=== PATIENT | male | born 1950 | race Caucasian/White ===

== ENCOUNTER 2019-11-04 13:41 | Inpatient (IN) ==
[2019-11-08] MEDS: carvediloL 6.25 MG TABLET PO SCH (20:59)
[2019-11-08] MEDS: traZODone 50 MG TABLET PO PRN (20:59)
[2019-11-09 05:20] LABS: Basophils # 0.1 K/mcL (0.0-0.2); Basophils % 0.8 %; Eosinophils # 0.2 K/mcL (0.0-0.6); Eosinophils % 2.4 %; Hematocrit 36.1 % (37.5-50.1); Hemoglobin 12.4 g/dL (12.9-16.9); Immature Granulocytes % 0.8 % (0-4); Lymphocytes # 1.5 K/mcL (0.6-4.6); Lymphocytes % 17.9 %; Mean Corpuscular HGB Conc 34.3 g/dL (31.6-35.5); Mean Corpuscular Hemoglobin 31.3 pg (28.0-33.3); Mean Corpuscular Volume 91.2 fL (83.0-100.0); Mean Platelet Volume 8.9 fL (9.4-12.4); Monocytes % 11.3 %; Neutrophils # 5.6 K/mcL (1.6-8.9); Platelet Count 236 K/mcL (140-400); Red Blood Count 3.96 M/mcL (4.19-5.50); Red Cell Distribution Width 14.8 % (11.5-14.5); Segmented Neutrophils % 66.8 %; White Blood Count 8.4 K/mcL (4.3-11.1)
[2019-11-09 05:34] LABS: BUN/Creatinine Ratio 19 (6-26); Blood Urea Nitrogen 17 mg/dL (8-23); Calcium 8.9 mg/dL (8.6-10.3); Carbon Dioxide 25 mEq/L (23-29); Chloride 103 mEq/L (98-107); Glucose 106 mg/dL (70-105); Osmolality,Calculated 282 (280-300); Potassium 4.1 mEq/L (3.5-5.1); Sodium 135 mEq/L (136-145); eGFR For African Americans > 60 (> 60); eGFR For Non-African Americans > 60 (> 60)
[2019-11-09] MEDS: amLODIPine 5 MG TABLET PO SCH (07:49)
[2019-11-09] MEDS: lisinopriL 20 MG TABLET PO SCH (07:49)
[2019-11-09] MEDS: Furosemide 20 MG TABLET PO SCH (07:49)
[2019-11-09] MEDS: Aspirin 81 MG TAB.CHEW PO SCH (07:49)
[2019-11-09] MEDS: carvediloL 6.25 MG TABLET PO SCH ×2 (07:49→20:42)
[2019-11-09] MEDS: Acetaminophen 325 MG TABLET PO PRN (16:24)
[2019-11-09] MEDS: traZODone 50 MG TABLET PO PRN (21:38)
[2019-11-10] MEDS: carvediloL 6.25 MG TABLET PO SCH ×2 (08:55→20:18)
[2019-11-10] MEDS: Aspirin 81 MG TAB.CHEW PO SCH (08:55)
[2019-11-10] MEDS: Furosemide 20 MG TABLET PO SCH (08:55)
[2019-11-10] MEDS: lisinopriL 20 MG TABLET PO SCH (08:55)
[2019-11-10] MEDS: amLODIPine 5 MG TABLET PO SCH (08:55)
[2019-11-10] MEDS: Acetaminophen 325 MG TABLET PO PRN (09:33)
[2019-11-10] MEDS: *HR* HYDROcodone/Acet 5/325 mg TABLET PO PRN ×2 (11:36→20:17)
[2019-11-10 14:42] LABS: Bilirubin,Urine Negative (Negative); Blood,Urine Trace-intact (Negative); Clarity,Urine Clear (Clear); Color,Urine Yellow (Yellow); Glucose,Urine (UA) Normal (Normal); Ketones,Urine Negative (Negative); Leukocyte Esterase,Urine Negative (Negative); Nitrite,Urine Negative (Negative); Protein,Urine Negative (Neg-Trace); Urobilinogen,Urine Normal (Normal)
[2019-11-10 14:47] LABS: RBC,Urine 0-3 per hpf (0-3); WBC,Urine 0-3 per hpf (0-3)
[2019-11-10] MEDS: traZODone 50 MG TABLET PO PRN (20:17)
[2019-11-11 06:09] LABS: Basophils # 0.1 K/mcL (0.0-0.2); Basophils % 1.1 %; Eosinophils # 0.3 K/mcL (0.0-0.6); Eosinophils % 3.3 %; Hematocrit 35.4 % (37.5-50.1); Hemoglobin 12.2 g/dL (12.9-16.9); Immature Granulocytes % 0.7 % (0-4); Lymphocytes # 1.7 K/mcL (0.6-4.6); Lymphocytes % 22.9 %; Mean Corpuscular HGB Conc 34.5 g/dL (31.6-35.5); Mean Corpuscular Hemoglobin 31.6 pg (28.0-33.3); Mean Corpuscular Volume 91.7 fL (83.0-100.0); Mean Platelet Volume 9.1 fL (9.4-12.4); Monocytes # 0.8 K/mcL (0.0-1.3); Monocytes % 11.2 %; Neutrophils # 4.6 K/mcL (1.6-8.9); Platelet Count 236 K/mcL (140-400); Red Blood Count 3.86 M/mcL (4.19-5.50); Red Cell Distribution Width 14.8 % (11.5-14.5); Segmented Neutrophils % 60.8 %; White Blood Count 7.5 K/mcL (4.3-11.1)
[2019-11-11 06:29] LABS: Alanine Aminotransferase 30 Units/L (7-52); Albumin 3.7 g/dL (3.5-5.7); Albumin/Globulin Ratio 1.6 (1.1-2.2); Alkaline Phosphatase 53 Units/L (34-104); Aspartate Amino Transferase 21 Units/L (13-39); BUN/Creatinine Ratio 25 (6-26); Bilirubin,Total 1.2 mg/dL (0.3-1.0); Blood Urea Nitrogen 20 mg/dL (8-23); Carbon Dioxide 28 mEq/L (23-29); Chloride 103 mEq/L (98-107); Globulin 2.3 g/dL (2.4-3.5); Glucose 110 mg/dL (70-105); Magnesium 2.3 mg/dL (1.6-2.6); Osmolality,Calculated 285 (280-300); Potassium 4.3 mEq/L (3.5-5.1); Sodium 136 mEq/L (136-145); eGFR For African Americans > 60 (> 60); eGFR For Non-African Americans > 60 (> 60)
[2019-11-11] MEDS: Aspirin 81 MG TAB.CHEW PO SCH (08:21)
[2019-11-11] MEDS: lisinopriL 20 MG TABLET PO SCH (08:21)
[2019-11-11] MEDS: carvediloL 6.25 MG TABLET PO SCH ×2 (08:21→21:33)
[2019-11-11] MEDS: Acetaminophen 325 MG TABLET PO PRN ×2 (08:21→21:35)
[2019-11-11] MEDS: Furosemide 20 MG TABLET PO SCH (08:22)
[2019-11-11] MEDS: amLODIPine 5 MG TABLET PO SCH (08:22)
[2019-11-11] MEDS: *HR* HYDROcodone/Acet 5/325 mg TABLET PO PRN (14:46)
[2019-11-11] MEDS: traZODone 50 MG TABLET PO PRN (21:34)
[2019-11-12] MEDS: *HR* HYDROcodone/Acet 5/325 mg TABLET PO PRN (06:59)
[2019-11-12] MEDS: Aspirin 81 MG TAB.CHEW PO SCH (09:15)
[2019-11-12] MEDS: carvediloL 6.25 MG TABLET PO SCH ×2 (09:15→20:37)
[2019-11-12] MEDS: Furosemide 20 MG TABLET PO SCH (09:15)
[2019-11-12] MEDS: lisinopriL 20 MG TABLET PO SCH (09:15)
[2019-11-12] MEDS: amLODIPine 5 MG TABLET PO SCH (09:16)
[2019-11-12] MEDS: Ibuprofen 400 MG TABLET PO PRN (20:38)
[2019-11-12] MEDS: traZODone 50 MG TABLET PO PRN (20:38)
[2019-11-13] MEDS: *HR* HYDROcodone/Acet 5/325 mg TABLET PO PRN ×2 (05:31→18:10)
[2019-11-13] MEDS: Aspirin 81 MG TAB.CHEW PO SCH (09:00)
[2019-11-13] MEDS: Furosemide 20 MG TABLET PO SCH (09:00)
[2019-11-13] MEDS: carvediloL 6.25 MG TABLET PO SCH ×2 (09:00→20:47)
[2019-11-13] MEDS: amLODIPine 5 MG TABLET PO SCH (09:00)
[2019-11-13] MEDS: lisinopriL 20 MG TABLET PO SCH (09:00)
[2019-11-13] MEDS: Ibuprofen 400 MG TABLET PO PRN (20:43)
[2019-11-13] MEDS: traZODone 50 MG TABLET PO PRN (20:44)
[2019-11-14] MEDS: *HR* HYDROcodone/Acet 5/325 mg TABLET PO PRN ×2 (01:46→20:53)
[2019-11-14] MEDS: Acetaminophen 325 MG TABLET PO PRN ×2 (06:25→12:23)
[2019-11-14] MEDS: carvediloL 6.25 MG TABLET PO SCH ×2 (08:44→20:51)
[2019-11-14] MEDS: amLODIPine 5 MG TABLET PO SCH (08:44)
[2019-11-14] MEDS: lisinopriL 20 MG TABLET PO SCH (08:44)
[2019-11-14] MEDS: Furosemide 20 MG TABLET PO SCH (08:44)
[2019-11-14] MEDS: Aspirin 81 MG TAB.CHEW PO SCH (08:44)
[2019-11-14] MEDS: traZODone 50 MG TABLET PO PRN (20:52)
[2019-11-15] MEDS: lisinopriL 20 MG TABLET PO SCH (08:22)
[2019-11-15] MEDS: Aspirin 81 MG TAB.CHEW PO SCH (08:22)
[2019-11-15] MEDS: carvediloL 6.25 MG TABLET PO SCH ×2 (08:22→20:33)
[2019-11-15] MEDS: Furosemide 20 MG TABLET PO SCH (08:22)
[2019-11-15] MEDS: amLODIPine 5 MG TABLET PO SCH (08:22)
[2019-11-15] MEDS: *HR* HYDROcodone/Acet 5/325 mg TABLET PO PRN ×2 (10:30→20:34)
[2019-11-15] MEDS: traZODone 50 MG TABLET PO PRN (20:34)
[2019-11-16] MEDS: carvediloL 6.25 MG TABLET PO SCH ×2 (08:34→20:33)
[2019-11-16] MEDS: lisinopriL 20 MG TABLET PO SCH (08:35)
[2019-11-16] MEDS: Furosemide 20 MG TABLET PO SCH (08:35)
[2019-11-16] MEDS: Aspirin 81 MG TAB.CHEW PO SCH (08:35)
[2019-11-16] MEDS: amLODIPine 5 MG TABLET PO SCH (08:35)
[2019-11-16] MEDS: Acetaminophen 325 MG TABLET PO PRN (09:22)
[2019-11-16] MEDS: traZODone 50 MG TABLET PO PRN (20:32)
[2019-11-16] MEDS: Sennosides/Docusate Sodium TABLET PO SCH (20:33)
[2019-11-16] MEDS: *HR* HYDROcodone/Acet 5/325 mg TABLET PO PRN (20:34)
[2019-11-17 05:16] LABS: Hematocrit 37.7 % (37.5-50.1); Hemoglobin 12.9 g/dL (12.9-16.9); Mean Corpuscular HGB Conc 34.2 g/dL (31.6-35.5); Mean Corpuscular Hemoglobin 31.1 pg (28.0-33.3); Mean Corpuscular Volume 90.8 fL (83.0-100.0); Mean Platelet Volume 8.9 fL (9.4-12.4); Platelet Count 232 K/mcL (140-400); Red Blood Count 4.15 M/mcL (4.19-5.50); Red Cell Distribution Width 14.6 % (11.5-14.5); White Blood Count 6.5 K/mcL (4.3-11.1)
[2019-11-17 05:35] LABS: Alanine Aminotransferase 25 Units/L (7-52); Albumin 3.8 g/dL (3.5-5.7); Albumin/Globulin Ratio 1.5 (1.1-2.2); Alkaline Phosphatase 52 Units/L (34-104); Aspartate Amino Transferase 18 Units/L (13-39); BUN/Creatinine Ratio 17 (6-26); Bilirubin,Total 0.8 mg/dL (0.3-1.0); Blood Urea Nitrogen 13 mg/dL (8-23); Calcium 9.2 mg/dL (8.6-10.3); Carbon Dioxide 26 mEq/L (23-29); Chloride 102 mEq/L (98-107); Globulin 2.6 g/dL (2.4-3.5); Glucose 118 mg/dL (70-105); Magnesium 2.2 mg/dL (1.6-2.6); Osmolality,Calculated 279 (280-300); Potassium 4.2 mEq/L (3.5-5.1); Sodium 134 mEq/L (136-145); Total Protein 6.4 g/dL (6.4-8.9); eGFR For African Americans > 60 (> 60); eGFR For Non-African Americans > 60 (> 60)
[2019-11-17] MEDS: carvediloL 6.25 MG TABLET PO SCH ×2 (08:32→20:19)
[2019-11-17] MEDS: Aspirin 81 MG TAB.CHEW PO SCH (08:32)
[2019-11-17] MEDS: lisinopriL 20 MG TABLET PO SCH (08:32)
[2019-11-17] MEDS: amLODIPine 5 MG TABLET PO SCH (08:32)
[2019-11-17] MEDS: Furosemide 20 MG TABLET PO SCH (08:32)
[2019-11-17] MEDS: Sennosides/Docusate Sodium TABLET PO SCH ×2 (08:32→20:16)
[2019-11-17] MEDS: *HR* HYDROcodone/Acet 5/325 mg TABLET PO PRN ×2 (14:24→20:21)
[2019-11-17] MEDS: Melatonin 3 MG TABLET PO SCH (20:17)
[2019-11-17] MEDS: traZODone 50 MG TABLET PO SCH (20:18)
[2019-11-18] MEDS: *HR* HYDROcodone/Acet 5/325 mg TABLET PO PRN ×2 (06:48→20:19)
[2019-11-18] MEDS: Furosemide 20 MG TABLET PO SCH (08:20)
[2019-11-18] MEDS: lisinopriL 20 MG TABLET PO SCH (08:20)
[2019-11-18] MEDS: Aspirin 81 MG TAB.CHEW PO SCH (08:21)
[2019-11-18] MEDS: Sennosides/Docusate Sodium TABLET PO SCH ×2 (08:21→20:20)
[2019-11-18] MEDS: amLODIPine 5 MG TABLET PO SCH (08:21)
[2019-11-18] MEDS: carvediloL 6.25 MG TABLET PO SCH ×2 (08:21→20:22)
[2019-11-18] MEDS: Ibuprofen 400 MG TABLET PO PRN (09:21)
[2019-11-18] MEDS ORDERED: Bisacodyl 10 MG RECTAL SUPPOSITORY RC PRN (11:24)
[2019-11-18] MEDS: traZODone 50 MG TABLET PO SCH (20:20)
[2019-11-18] MEDS: Melatonin 3 MG TABLET PO SCH (20:21)
[2019-11-19] MEDS: *HR* HYDROcodone/Acet 5/325 mg TABLET PO PRN ×2 (04:18→21:02)
[2019-11-19] MEDS: Aspirin 81 MG TAB.CHEW PO SCH (08:25)
[2019-11-19] MEDS: Sennosides/Docusate Sodium TABLET PO SCH ×2 (08:26→21:04)
[2019-11-19] MEDS: lisinopriL 20 MG TABLET PO SCH (08:26)
[2019-11-19] MEDS: amLODIPine 5 MG TABLET PO SCH (08:26)
[2019-11-19] MEDS: Furosemide 20 MG TABLET PO SCH (08:26)
[2019-11-19] MEDS: carvediloL 6.25 MG TABLET PO SCH ×2 (08:26→21:03)
[2019-11-19] MEDS: Melatonin 3 MG TABLET PO SCH (21:04)
[2019-11-20] MEDS: *HR* HYDROcodone/Acet 5/325 mg TABLET PO PRN ×3 (03:03→18:25)
[2019-11-20] MEDS: amLODIPine 5 MG TABLET PO SCH (09:14)
[2019-11-20] MEDS: Aspirin 81 MG TAB.CHEW PO SCH (09:14)
[2019-11-20] MEDS: carvediloL 6.25 MG TABLET PO SCH ×2 (09:14→20:02)
[2019-11-20] MEDS: lisinopriL 20 MG TABLET PO SCH (09:15)
[2019-11-20] MEDS: Sennosides/Docusate Sodium TABLET PO SCH ×2 (09:15→20:01)
[2019-11-20] MEDS: Furosemide 20 MG TABLET PO SCH (09:15)
[2019-11-20] MEDS: Melatonin 3 MG TABLET PO SCH (20:02)
[2019-11-20] MEDS: Ibuprofen 400 MG TABLET PO PRN (22:31)
[2019-11-21] MEDS: *HR* HYDROcodone/Acet 5/325 mg TABLET PO PRN ×2 (02:36→22:28)
[2019-11-21] MEDS: Aspirin 81 MG TAB.CHEW PO SCH (08:12)
[2019-11-21] MEDS: carvediloL 6.25 MG TABLET PO SCH ×2 (08:12→21:02)
[2019-11-21] MEDS: amLODIPine 5 MG TABLET PO SCH (08:12)
[2019-11-21] MEDS: lisinopriL 20 MG TABLET PO SCH (08:13)
[2019-11-21] MEDS: Furosemide 20 MG TABLET PO SCH (08:13)
[2019-11-21] MEDS: Sennosides/Docusate Sodium TABLET PO SCH ×2 (08:13→21:03)
[2019-11-21] MEDS: Gabapentin 100 MG CAPSULE PO SCH ×2 (14:30→21:03)
[2019-11-21] MEDS: Melatonin 3 MG TABLET PO SCH (21:02)
[2019-11-22] MEDS: amLODIPine 5 MG TABLET PO SCH (09:40)
[2019-11-22] MEDS: Sennosides/Docusate Sodium TABLET PO SCH ×3 (09:41→20:10)
[2019-11-22] MEDS: carvediloL 6.25 MG TABLET PO SCH ×2 (09:41→20:09)
[2019-11-22] MEDS: lisinopriL 20 MG TABLET PO SCH ×2 (09:41→17:15)
[2019-11-22] MEDS: Aspirin 81 MG TAB.CHEW PO SCH ×2 (09:41→17:14)
[2019-11-22] MEDS: Gabapentin 100 MG CAPSULE PO SCH ×4 (09:41→20:09)
[2019-11-22] MEDS: Furosemide 20 MG TABLET PO SCH ×2 (09:41→17:15)
[2019-11-22] MEDS ORDERED: Albuterol 2.5 MG/3 ML NEBULIZER IH PRN (17:44)
[2019-11-22] MEDS: Melatonin 3 MG TABLET PO SCH (20:09)
[2019-11-22] MEDS: Doxycycline 100 MG CAPSULE PO SCH (20:09)
[2019-11-22] MEDS: Acetaminophen 325 MG TABLET PO PRN (20:10)
[2019-11-22 21:08] LABS: Basophils # 0.1 K/mcL (0.0-0.2); Basophils % 1.2 %; Eosinophils # 0.2 K/mcL (0.0-0.6); Eosinophils % 2.2 %; Hemoglobin 12.5 g/dL (12.9-16.9); Immature Granulocytes % 0.4 % (0-4); Lymphocytes # 1.9 K/mcL (0.6-4.6); Mean Corpuscular HGB Conc 35.7 g/dL (31.6-35.5); Mean Corpuscular Hemoglobin 31.8 pg (28.0-33.3); Mean Corpuscular Volume 89.1 fL (83.0-100.0); Mean Platelet Volume 8.9 fL (9.4-12.4); Monocytes # 1.3 K/mcL (0.0-1.3); Monocytes % 15.2 %; Neutrophils # 5.1 K/mcL (1.6-8.9); Platelet Count 181 K/mcL (140-400); Red Blood Count 3.93 M/mcL (4.19-5.50); Red Cell Distribution Width 14.2 % (11.5-14.5); White Blood Count 8.6 K/mcL (4.3-11.1)
[2019-11-22 21:24] LABS: BUN/Creatinine Ratio 27 (6-26); Blood Urea Nitrogen 22 mg/dL (8-23); Calcium 8.7 mg/dL (8.6-10.3); Carbon Dioxide 23 mEq/L (23-29); Chloride 94 mEq/L (98-107); Glucose 103 mg/dL (70-105); Osmolality,Calculated 262 (280-300); Potassium 4.1 mEq/L (3.5-5.1); Sodium 124 mEq/L (136-145); eGFR For African Americans > 60 (> 60); eGFR For Non-African Americans > 60 (> 60)
[2019-11-23] MEDS: amLODIPine 5 MG TABLET PO SCH (04:29)
[2019-11-23] MEDS: carvediloL 6.25 MG TABLET PO SCH ×2 (04:29→20:18)
[2019-11-23] MEDS: Doxycycline 100 MG CAPSULE PO SCH ×2 (04:39→20:16)
[2019-11-23] MEDS: Gabapentin 100 MG CAPSULE PO SCH ×2 (15:55→20:14)
[2019-11-23] MEDS: Furosemide 20 MG TABLET PO SCH (16:56)
[2019-11-23] MEDS: Aspirin 81 MG TAB.CHEW PO SCH (16:56)
[2019-11-23] MEDS: Sennosides/Docusate Sodium TABLET PO SCH (17:55)
[2019-11-23 18:24] LABS: BUN/Creatinine Ratio 20 (6-26); Blood Urea Nitrogen 19 mg/dL (8-23); Calcium 9.4 mg/dL (8.6-10.3); Carbon Dioxide 24 mEq/L (23-29); Chloride 98 mEq/L (98-107); Glucose 107 mg/dL (70-105); Osmolality,Calculated 273 (280-300); Potassium 4.1 mEq/L (3.5-5.1); Sodium 130 mEq/L (136-145); eGFR For African Americans > 60 (> 60); eGFR For Non-African Americans > 60 (> 60)
[2019-11-23] MEDS: Ibuprofen 400 MG TABLET PO PRN (20:15)
[2019-11-23] MEDS: Melatonin 3 MG TABLET PO SCH (20:17)
[2019-11-24] MEDS: *HR* HYDROcodone/Acet 5/325 mg TABLET PO PRN (04:36)
[2019-11-24 06:02] LABS: BUN/Creatinine Ratio 23 (6-26); Blood Urea Nitrogen 18 mg/dL (8-23); Calcium 9.1 mg/dL (8.6-10.3); Carbon Dioxide 25 mEq/L (23-29); Chloride 97 mEq/L (98-107); Glucose 111 mg/dL (70-105); Osmolality,Calculated 271 (280-300); Potassium 4.4 mEq/L (3.5-5.1); Sodium 129 mEq/L (136-145); eGFR For African Americans > 60 (> 60); eGFR For Non-African Americans > 60 (> 60)
[2019-11-24] MEDS: Doxycycline 100 MG CAPSULE PO SCH ×2 (08:46→20:45)
[2019-11-24] MEDS: Aspirin 81 MG TAB.CHEW PO SCH (08:46)
[2019-11-24] MEDS: Furosemide 20 MG TABLET PO SCH (08:46)
[2019-11-24] MEDS: carvediloL 6.25 MG TABLET PO SCH ×2 (08:46→20:50)
[2019-11-24] MEDS: lisinopriL 20 MG TABLET PO SCH (08:46)
[2019-11-24] MEDS: Gabapentin 100 MG CAPSULE PO SCH ×3 (08:46→20:45)
[2019-11-24] MEDS: amLODIPine 5 MG TABLET PO SCH (08:46)
[2019-11-24] MEDS: Acetaminophen 325 MG TABLET PO PRN (08:47)
[2019-11-24] MEDS: Sennosides/Docusate Sodium TABLET PO SCH ×2 (08:50→20:47)
[2019-11-24] MEDS: Melatonin 3 MG TABLET PO SCH (20:46)
[2019-11-24] MEDS: Ibuprofen 400 MG TABLET PO PRN (20:48)
[2019-11-25] MEDS: Ibuprofen 400 MG TABLET PO PRN (04:42)
[2019-11-25] MEDS: Aspirin 81 MG TAB.CHEW PO SCH (08:03)
[2019-11-25] MEDS: lisinopriL 20 MG TABLET PO SCH (08:03)
[2019-11-25] MEDS: Doxycycline 100 MG CAPSULE PO SCH ×2 (08:03→20:35)
[2019-11-25] MEDS: Gabapentin 100 MG CAPSULE PO SCH ×3 (08:03→20:36)
[2019-11-25] MEDS: amLODIPine 5 MG TABLET PO SCH (08:03)
[2019-11-25] MEDS: Sennosides/Docusate Sodium TABLET PO SCH ×2 (08:03→20:36)
[2019-11-25] MEDS: carvediloL 6.25 MG TABLET PO SCH ×2 (08:03→20:35)
[2019-11-25] MEDS: Furosemide 20 MG TABLET PO SCH (08:03)
[2019-11-25] MEDS: Melatonin 3 MG TABLET PO SCH (20:36)
[2019-11-26] MEDS: Doxycycline 100 MG CAPSULE PO SCH ×2 (08:49→20:14)
[2019-11-26] MEDS: lisinopriL 20 MG TABLET PO SCH (08:49)
[2019-11-26] MEDS: Aspirin 81 MG TAB.CHEW PO SCH (08:49)
[2019-11-26] MEDS: Furosemide 20 MG TABLET PO SCH (08:49)
[2019-11-26] MEDS: carvediloL 6.25 MG TABLET PO SCH ×2 (08:49→20:15)
[2019-11-26] MEDS: amLODIPine 5 MG TABLET PO SCH (08:49)
[2019-11-26] MEDS: Sennosides/Docusate Sodium TABLET PO SCH ×2 (08:49→20:14)
[2019-11-26] MEDS: Gabapentin 100 MG CAPSULE PO SCH ×3 (08:49→20:14)
[2019-11-26] MEDS: Acetaminophen 325 MG TABLET PO PRN (15:35)
[2019-11-26] MEDS: Ibuprofen 400 MG TABLET PO PRN (20:14)
[2019-11-26] MEDS: Melatonin 3 MG TABLET PO SCH (20:15)
[2019-11-27] MEDS: Acetaminophen 325 MG TABLET PO PRN ×2 (06:28→15:15)
[2019-11-27] MEDS: amLODIPine 5 MG TABLET PO SCH (09:06)
[2019-11-27] MEDS: Aspirin 81 MG TAB.CHEW PO SCH (09:06)
[2019-11-27] MEDS: carvediloL 6.25 MG TABLET PO SCH ×2 (09:06→20:52)
[2019-11-27] MEDS: Sennosides/Docusate Sodium TABLET PO SCH ×2 (09:07→20:53)
[2019-11-27] MEDS: lisinopriL 20 MG TABLET PO SCH (09:07)
[2019-11-27] MEDS: Doxycycline 100 MG CAPSULE PO SCH ×2 (09:07→20:53)
[2019-11-27] MEDS: Gabapentin 100 MG CAPSULE PO SCH ×3 (09:07→20:53)
[2019-11-27] MEDS: Furosemide 20 MG TABLET PO SCH (09:07)
[2019-11-27] MEDS: Ibuprofen 400 MG TABLET PO PRN ×2 (09:07→20:54)
[2019-11-27] MEDS: Melatonin 3 MG TABLET PO SCH (20:53)
[2019-11-28] MEDS: Doxycycline 100 MG CAPSULE PO SCH ×2 (08:19→22:20)
[2019-11-28] MEDS: Gabapentin 100 MG CAPSULE PO SCH ×3 (08:20→22:21)
[2019-11-28] MEDS: Furosemide 20 MG TABLET PO SCH (08:20)
[2019-11-28] MEDS: amLODIPine 5 MG TABLET PO SCH (08:20)
[2019-11-28] MEDS: lisinopriL 20 MG TABLET PO SCH (08:20)
[2019-11-28] MEDS: Aspirin 81 MG TAB.CHEW PO SCH (08:20)
[2019-11-28] MEDS: carvediloL 6.25 MG TABLET PO SCH ×2 (08:20→22:20)
[2019-11-28] MEDS: Sennosides/Docusate Sodium TABLET PO SCH ×2 (08:20→22:21)
[2019-11-28] MEDS: Acetaminophen 325 MG TABLET PO PRN (15:55)
[2019-11-28] MEDS: Ibuprofen 400 MG TABLET PO PRN (22:20)
[2019-11-28] MEDS: Melatonin 3 MG TABLET PO SCH (22:20)
[2019-11-29 05:30] LABS: Basophils # 0.1 K/mcL (0.0-0.2); Basophils % 1.3 %; Eosinophils # 0.2 K/mcL (0.0-0.6); Eosinophils % 2.7 %; Hematocrit 37.2 % (37.5-50.1); Hemoglobin 13.1 g/dL (12.9-16.9); Immature Granulocytes % 0.3 % (0-4); Lymphocytes # 1.9 K/mcL (0.6-4.6); Lymphocytes % 26.1 %; Mean Corpuscular HGB Conc 35.2 g/dL (31.6-35.5); Mean Corpuscular Hemoglobin 31.7 pg (28.0-33.3); Mean Corpuscular Volume 90.1 fL (83.0-100.0); Mean Platelet Volume 9.1 fL (9.4-12.4); Monocytes % 13.5 %; Platelet Count 180 K/mcL (140-400); Red Blood Count 4.13 M/mcL (4.19-5.50); Segmented Neutrophils % 56.1 %; White Blood Count 7.1 K/mcL (4.3-11.1)
[2019-11-29 05:43] LABS: BUN/Creatinine Ratio 20 (6-26); Blood Urea Nitrogen 15 mg/dL (8-23); Calcium 9.3 mg/dL (8.6-10.3); Carbon Dioxide 25 mEq/L (23-29); Chloride 101 mEq/L (98-107); Glucose 108 mg/dL (70-105); Osmolality,Calculated 275 (280-300); Potassium 4.3 mEq/L (3.5-5.1); Sodium 132 mEq/L (136-145); eGFR For African Americans > 60 (> 60); eGFR For Non-African Americans > 60 (> 60)
[2019-11-29] MEDS: Furosemide 20 MG TABLET PO SCH (08:07)
[2019-11-29] MEDS: lisinopriL 20 MG TABLET PO SCH (08:07)
[2019-11-29] MEDS: Doxycycline 100 MG CAPSULE PO SCH ×2 (08:07→21:24)
[2019-11-29] MEDS: Aspirin 81 MG TAB.CHEW PO SCH (08:07)
[2019-11-29] MEDS: Gabapentin 100 MG CAPSULE PO SCH ×3 (08:07→21:24)
[2019-11-29] MEDS: carvediloL 6.25 MG TABLET PO SCH ×2 (08:07→21:24)
[2019-11-29] MEDS: amLODIPine 5 MG TABLET PO SCH (08:07)
[2019-11-29] MEDS: Sennosides/Docusate Sodium TABLET PO SCH ×2 (08:07→21:24)
[2019-11-29] MEDS: Melatonin 3 MG TABLET PO SCH (21:24)
[2019-11-30] MEDS: Furosemide 20 MG TABLET PO SCH (08:51)
[2019-11-30] MEDS: Gabapentin 100 MG CAPSULE PO SCH ×3 (08:51→21:44)
[2019-11-30] MEDS: carvediloL 6.25 MG TABLET PO SCH ×2 (08:52→21:42)
[2019-11-30] MEDS: Aspirin 81 MG TAB.CHEW PO SCH (08:52)
[2019-11-30] MEDS: amLODIPine 5 MG TABLET PO SCH (08:52)
[2019-11-30] MEDS: Sennosides/Docusate Sodium TABLET PO SCH ×2 (08:52→21:43)
[2019-11-30] MEDS: lisinopriL 20 MG TABLET PO SCH (08:52)
[2019-11-30] MEDS: Acetaminophen 325 MG TABLET PO PRN (09:28)
[2019-11-30] MEDS ORDERED: E-Z-PAQUE (BARIUM SULF) SUSP 1 BOTTLE PO ONE (10:58)
[2019-11-30] MEDS ORDERED: E-Z-HD (BARIUM SULF) SUSPENSION PO ONE (10:58)
[2019-11-30] MEDS: Ibuprofen 400 MG TABLET PO PRN (16:55)
[2019-11-30] MEDS: Melatonin 3 MG TABLET PO SCH (21:41)
[2019-12-01] MEDS: Furosemide 20 MG TABLET PO SCH (08:07)
[2019-12-01] MEDS: Gabapentin 100 MG CAPSULE PO SCH ×2 (08:07→22:12)
[2019-12-01] MEDS: carvediloL 6.25 MG TABLET PO SCH ×2 (08:07→22:13)
[2019-12-01] MEDS: Sennosides/Docusate Sodium TABLET PO SCH ×2 (08:07→22:13)
[2019-12-01] MEDS: lisinopriL 20 MG TABLET PO SCH (08:08)
[2019-12-01] MEDS: amLODIPine 5 MG TABLET PO SCH (08:08)
[2019-12-01] MEDS: Acetaminophen 325 MG TABLET PO PRN ×2 (08:08→22:13)
[2019-12-01] MEDS: Aspirin 81 MG TAB.CHEW PO SCH (08:10)
[2019-12-01] MEDS: Melatonin 3 MG TABLET PO SCH (22:12)
[2019-12-02] MEDS: carvediloL 6.25 MG TABLET PO SCH ×2 (08:58→21:36)
[2019-12-02] MEDS: amLODIPine 5 MG TABLET PO SCH (08:58)
[2019-12-02] MEDS: Gabapentin 100 MG CAPSULE PO SCH ×4 (08:58→21:33)
[2019-12-02] MEDS: Sennosides/Docusate Sodium TABLET PO SCH ×2 (08:58→21:33)
[2019-12-02] MEDS: Furosemide 20 MG TABLET PO SCH (08:58)
[2019-12-02] MEDS: lisinopriL 20 MG TABLET PO SCH (08:58)
[2019-12-02] MEDS: Aspirin 81 MG TAB.CHEW PO SCH (08:59)
[2019-12-02] MEDS: Acetaminophen 325 MG TABLET PO PRN ×2 (10:16→17:06)
[2019-12-02] MEDS: Melatonin 3 MG TABLET PO SCH (21:33)
[2019-12-02] MEDS: Ibuprofen 400 MG TABLET PO PRN (21:35)
[2019-12-03 07:18] VITALS: BP 130/77
[2019-12-03] MEDS: Sennosides/Docusate Sodium TABLET PO SCH (09:25)
[2019-12-03] MEDS: lisinopriL 20 MG TABLET PO SCH (09:25)
[2019-12-03] MEDS: Furosemide 20 MG TABLET PO SCH (09:25)
[2019-12-03] MEDS: amLODIPine 5 MG TABLET PO SCH (09:25)
[2019-12-03] MEDS: Gabapentin 100 MG CAPSULE PO SCH (09:25)
[2019-12-03] MEDS: Aspirin 81 MG TAB.CHEW PO SCH (09:25)
[2019-12-03] MEDS: carvediloL 6.25 MG TABLET PO SCH (09:26)
[2019-12-03] MEDS: Acetaminophen 325 MG TABLET PO PRN (09:30)
== END 2019-12-03 11:31 | disposition home health service (06) | DRG 56 ==
LOC: INPGRE 11-08 17:13
PROVIDERS: ADMIT Family Medicine; ATTEND Family Medicine